=== PATIENT | female | born 1990 | race Caucasian/White ===

== ENCOUNTER 2018-03-04 16:24 | Emergency (ER) | payer BC ==
--- NOTE | 2018-03-04 16:26 | EDPHY ---
H & P Time Seen by Provider: 03/04/18 16:25 Constitutional: Initial Vital Signs Temperature (C) 37.3 C 03/04/18 16:30 Heart Rate 94 03/04/18 16:30 Respiratory Rate 16 03/04/18 16:30 Blood Pressure 112/80 03/04/18 16:30 O2 Sat (%) 98 03/04/18 16:30 O2 Delivery Mode Room Air Allergies/Adverse Reactions: codeine Allergy (Verified 03/04/18 16:30) Penicillins Allergy (Verified 03/04/18 16:29) Home Medications: Medication Instructions Recorded NK [No Known Home Meds] 03/04/18 Medical Decision Making ED Course/Re-evaluation: CHIEF COMPLAINT: Epistaxis, syncope HISTORY OF PRESENT ILLNESS: The patient is a 27 y/o female arriving via EMS with her significant other for evaluation of a syncopal event following an episode of epistaxis this afternoon. She was sitting when she developed a spontaneous nosebleed. She stood up to walk to the sink, "then it started to really gush and come out of my mouth" and she became dizzy. Her friend helped her to the floor and then she had what she describes as a panic attack. At some point she lost consciousness on the floor because she remembers waking up still bleeding and having another panic attack. She remained dizzy for a while after regaining consciousness. She denies head strike or any trauma during this event. No seizure activity reported by her friend. She typically does not get nosebleeds, but did have a prior episode 1-2 months ago. She has no prior history of syncopal episodes. REVIEW OF SYSTEMS: A comprehensive 10 system review of systems is otherwise negative aside from elements mentioned in the history of present illness and medical decision making. PHYSICAL EXAM: HR, BP, O2 Sat, RR. Temp noted General Appearance: Alert, well hydrated, appropriate, and non-toxic appearing. Head: Atraumatic without scalp tenderness or obvious injury Eyes: Pupils equal, round, reactive to light and accommodation, EOMI, no trauma , no injection. Ears: Clear bilaterally, no perforation, normal landmarks Nose: Atraumatic, no rhinorrhea, small anterior bleed in right nares with small scabbing noted above site of bleeding. Throat: There is no erythema or exudates, no lesions, normal tonsils, mucus membranes moist. Neck: Supple, nontender, no lymphadenopathy. Respiratory: No retractions, no distress, no wheezes, and no accessory muscle use. Lungs are clear to auscultation bilaterally. Cardiovascular: Regular rate and rhythm, no murmurs, rubs, or gallops. Good capillary refill all extremities. Gastrointestinal: Abdomen is soft, nontender, non-distended, no masses, no rebound, no guarding, no peritoneal signs. Musculoskeletal: Normal active ROM of all extremities, atraumatic. Neurological: Alert, appropriate, and interactive. The patient has non-focal cranial nerves, motor, sensory, and cerebellar exam. Skin: No rashes, good turgor, no nodules on palpation. Past medical history: Panic attacks Past surgical history: Noncontributory Family history: Noncontributory Social history: Significant other at bedside. Employed. DIAGNOSTICS/PROCEDURES/CRITICAL CARE TIME: The 12 lead EKG was interpreted by myself. Sinus mechanism. See hard copy and/ or "tracemaster" electronic copy for interpretation. Procedure: Epistaxis control. Indication: Anterior epistaxis Risks, benefits, alternatives discussed with patient. Consent was obtained. Right anterior epistaxis was identified. The patient was treated with silver nitrate cautery. Excellent hemostasis was obtained. Following the procedure, the patient was re-examined and was free from epistaxis for post procedure. The patient tolerated the procedure well. The procedure was performed by myself, Dr. De Leon. DIFFERENTIAL DIAGNOSIS: The differential diagnosis for the patient's syncope included but was not limited to vasovagal syncope, arrhythmia, dehydration, cardiogenic causes, neurogenic causes, and blood loss. MEDICAL DECISION MAKING: This is a healthy 27 y/o female with a history of panic attacks who presents after a syncope during an epistaxis episode this afternoon. She has a small area of anterior epistaxis in the right nares. Otherwise exam is unremarkable. Story is consistent with a vasovagal syncope related to nosebleed. EKG is normal. Epistaxis controlled with silver nitrate cautery. Patient will be discharged with standard care and follow up instructions. Return precautions discussed. She is comfortable with this plan. Departure - Departure Disposition: Home, Routine, Self-Care Clinical Impression: Vasovagal syncope, Epistaxis Condition: Good Instructions: Nosebleed (ED), Syncope (ED), Panic Attack (ED) Additional Instructions: 1. If bleeding returns, apply direct pressure for 10-15 minutes to allow blood to clot. 2. If you continue to have recurrent nosebleeds, follow up with ENT. 3. Return to the ED for worsening of condition. Referrals: [facility],. [Clinic] - As per Instructions John Cabral MD [Medical Doctor] - As per Instructions Report Scribed for: Dieter De Leon Report Scribed by: Wendy Rdz Date of Report: 03/04/18 Time of Report: 16:34
[2018-03-04 16:32] VITALS: BP 112/80
[2018-03-04] MEDS ORDERED: SILVER NITRATE APPLICATOR 1 APPL TP ONE (16:42)
--- NOTE | 2018-03-04 17:03 | CPEKG ---
Test Reason : OPEN Blood Pressure : / mmHG Vent. Rate : 095 BPM Atrial Rate : 098 BPM P-R Int : 130 ms QRS Dur : 099 ms QT Int : 358 ms P-R-T Axes : 037 050 048 degrees QTc Int : 450 ms Sinus rhythm Confirmed by Dieter De Leon ([id number]) on 03/04/2018 5:03:29 PM Referred By: Confirmed By:Dieter De Leon
== END 2018-03-04 17:03 | disposition home or self-care (01) ==
LOC: EDUNIT#
PROC: 3E09XTZ Introduction of Destructive Agent into Nose, External Approach (ICD-10-PCS; principal; 2018-03-04)
DX: R55 Syncope and collapse (principal); R04.0 Epistaxis